=== PATIENT | female | born 1985 | race African-American/Black ===

== ENCOUNTER 2023-09-19 00:28 | Observation (INO) | payer SELFPAY ==
[2023-09-19 01:24] LABS: Hematocrit 37.4 % (36.0-47.0); Mean Corpuscular HGB CONC 32.1 g/dL (32.0-36.0); Mean Corpuscular Hemoglobin 25.9 pg (27.0-31.0); Mean Corpuscular Volume 80.6 fl (78.0-98.0); Platelet Count 189 10x3/uL (130-400); RBC Distribution Width 15.4 % (11.5-14.5); Red Blood Cell (RBC) Count 4.64 mill/uL (4.20-5.40); White Blood Cell (WBC) Count 10.2 10x3/uL (4.8-10.8)
[2023-09-19 01:32] LABS: Delete Auto Diff?? YES; Manual Diff?? YES
[2023-09-19 01:49] LABS: ALT (SGPT) 11 U/L (8-55); AST (SGOT) 20 U/L (5-34); Alkaline Phosphatase 44 U/L (40-110); Anion Gap 13 mmol/L (10-20); BUN (Urea Nitrogen) 10 mg/dL (7.0-18.7); Bilirubin, Total 0.2 mg/dL (0.2-1.2); Calc. Creatinine Clearance 0 mL/min (70-130); Calcium 8.9 mg/dL (7.8-10.44); Carbon Dioxide 22 mmol/L (22-29); Chloride 103 mmol/L (98-107); Estimated GFR 68; Globulin 3.5 g/dL (2.4-3.5); Glucose 174 mg/dL (70-105); Lipase 25 U/L (8-78); Potassium 3.9 mmol/L (3.5-5.1); Protein, Total 7.5 g/dL (6.0-8.3); Sodium 134 mmol/L (136-145)
[2023-09-19] MEDS ORDERED: Ondansetron PF 4 MG/2 ML Vial ONE (01:49)
[2023-09-19 01:52] LABS: Band 6 % (5-11); CellaVision Operator ID LAB.CLH1; Elliptocytes SLIGHT = 2-5 cells HPF (0-1); Eosinophils 3 % (0-10); Hypochromia SLIGHT = 6-15 cells HPF (0-5); Lymphocytes 13 % (21-51); Monocytes 1 % (0-10); Neutrophil 78 % (42-75); Platelet Adequacy Comment Platelets Normal; Target Cells SLIGHT = 2-5 cells HPF (0-1); Total Cell Count 116
[2023-09-19 02:20] LABS: BHCG - Serum Negative (NEGATIVE); Pregs Control Background? CLEAR/WHITE (CLR/WHITE); Pregs Control Bar Appear? YES (CONTROL BAR)
[2023-09-19 05:11] VITALS: BMI 24.7
[2023-09-19] MEDS ORDERED: Dextrose 5% in Water 1,000 ML IV PRN (06:35)
[2023-09-19] MEDS ORDERED: Glucagon 1 MG/ML KIT IM PRN (06:35)
[2023-09-19] MEDS ORDERED: Dextrose 50% Abboject 50 ML SYRINGE SLOW IVP PRN (06:35)
[2023-09-19] MEDS ORDERED: Ondansetron ODT 4 MG TAB PO PRN (07:38)
[2023-09-19] MEDS ORDERED: Acetaminophen 325 MG TAB PO PRN (07:38)
[2023-09-19] MEDS ORDERED: Ondansetron PF 4 MG/2 ML Vial IVP PRN (07:38)
[2023-09-19] MEDS ORDERED: Loratadine 10 MG TAB PO PRN (22:42)
[2023-09-20 03:54] LABS: #Eosinphils 0.5 thou/uL (0.0-0.7); #Monocytes 0.9 thou/uL (0.11-0.59); #Neutrophils 3.6 thou/uL (1.40-6.50); %Basophils 0.3 % (0.0-1.0); %Eosinophils 6.4 % (0.0-10.0); %Lymphocytes 33.8 % (21.0-51.0); %Monocytes 11.3 % (0.0-10.0); %Neutrophils 47.9 % (42.0-75.0); Hematocrit 32.2 % (36.0-47.0); Hemoglobin 10.3 g/dL (12.0-16.0); Mean Corpuscular Hemoglobin 25.6 pg (27.0-31.0); Mean Corpuscular Volume 80.1 fl (78.0-98.0); Mean Platelet Volume 10.5 fL (7.4-10.4); Platelet Count 184 10x3/uL (130-400); RBC Distribution Width 15.7 % (11.5-14.5); Red Blood Cell (RBC) Count 4.02 mill/uL (4.20-5.40); White Blood Cell (WBC) Count 7.6 10x3/uL (4.8-10.8)
[2023-09-20 04:17] LABS: Anion Gap 9 mmol/L (10-20); BUN (Urea Nitrogen) 5 mg/dL (7.0-18.7); Calc. Creatinine Clearance 107 mL/min (70-130); Calcium 8.4 mg/dL (7.8-10.44); Carbon Dioxide 24 mmol/L (22-29); Chloride 107 mmol/L (98-107); Estimated GFR 89; Glucose 101 mg/dL (70-105); Sodium 136 mmol/L (136-145)
[2023-09-20 12:35] VITALS: BP 116/83; TEMP 98.2
[2023-09-22] MEDS ORDERED: FLU VACC QS2023-24(6MOS UP)/PF 60 MCG/0.5 ML SYRINGE IM ONE (09:00)
== END 2023-09-20 13:40 | disposition home or self-care (01) ==
LOC: ERS 00:28 → T4-B 03:59
PROVIDERS: ADMIT Internal Medicine; ATTEND Family Medicine
DX: E16.2 Hypoglycemia, unspecified (principal); R55 Syncope and collapse
CPT/HCPCS: 36415; 36416; 80048; 80053; 83525; 83690; 84681; 84703; 85025; 93005; 96361; 96374; G0378; J2405